=== PATIENT | male | born 1960 | race Caucasian/White ===

== ENCOUNTER 2021-03-23 15:46 | Emergency (ER) | payer MEDICARE, OTHER ==
[~2021-03-23] VITALS: Ht 180.3 cm; Wt 89.8 kg
[2021-03-23 16:08] VITALS: BP 155/87
[2021-03-23] MEDS ORDERED: TRAMADOL HCL 50 MG TABLET PO ONE (16:30)
--- NOTE | 2021-03-23 16:30 | NUR ---
AMBER PA FROM [facility] FOR EVAL AND TREATMENT OF BILATERAL HIP PAIN S/P GLF THIS AM. NEAL PA AT BEDSIDE FOR EVAL. PATIENT A/OX4, BREATHING EVEN AND UNLABORED, NO SOB NOTED. NEEDS ATTENDED.
[2021-03-23] MEDS ORDERED: TRAMADOL HCL 50 MG TABLET ONE (16:44)
--- NOTE | 2021-03-23 17:28 | NUR ---
CALLED [facility] FOR TRANSPORT TO [facility]. ETA 90 MINUTES.
--- NOTE | 2021-03-23 17:52 | NUR ---
REPORT GIVEN TO [facility] COR[facility]ALES[facility].
--- NOTE | 2021-03-23 17:56 | NUR ---
PATIENT AMBULATORY WITH STEADY GAIT.
== END 2021-03-23 19:49 ==
LOC: ER 15:59
DX: M25.551 Pain in right hip (principal); M25.552 Pain in left hip
CPT/HCPCS: 73521; 82962-TC